=== PATIENT | male | born 1990 | race Caucasian/White ===

== ENCOUNTER 2021-10-25 10:41 | Inpatient (IN) | payer OTHER ==
[~2021-10-25] VITALS: Ht 177.8 cm; Wt 109.1 kg
[2021-10-25] MEDS ORDERED: ONDANSETRON HCL 4 MG/2 ML VIAL IVP ONE (11:00)
[2021-10-25] MEDS ORDERED: SODIUM CHLORIDE 0.9% 1,000 ML IV ONE (11:00)
[2021-10-25] MEDS ORDERED: 0.9% SODIUM CHLORIDE 10 ML SYRINGE IVP PRN (11:45)
[2021-10-25 11:46] LABS: ANION GAP 9 mmol/L (8-16); CALCIUM, TOTAL 9.1 mg/dL (8.8-10.5); CARBON DIOXIDE 26 mmol/L (22-29); CHLORIDE 102 mmol/L (98-107); CREATININE 0.74 mg/dL (0.60-1.30); GLOMERULAR FILTR. RATE CALC > 60 mL/min (>60); GLUCOSE,RANDOM 95 mg/dL (70-110); POTASSIUM 4.3 mmol/L (3.5-5.1); SODIUM SERUM 137 mmol/L (136-145); UREA NITROGEN, BLOOD 9 mg/dL (7-18)
[2021-10-25 11:52] LABS: ALANINE AMINOTRANSFERASE 19 U/L (12-78); ALBUMIN 3.7 g/dL (3.4-5.0); ALKALINE PHOSPHATASE 53 U/L (46-116); ASPARTATE AMINOTRANSFERASE 19 U/L (15-37); BILIRUBIN,TOTAL 0.7 mg/dL (0.1-1.0); TOTAL PROTEIN, SERUM 7.4 g/dL (6.4-8.2)
[2021-10-25 11:59] LABS: COVID AG,FIA SOURCE NASAL SWAB
[2021-10-25 12:55] LABS: BASOPHILS % (AUTO) 0.4 % (0.0-2.0); EOSINOPHILS % (AUTO) 0.5 % (1.0-6.0); HEMATOCRIT 43.7 % (41-53); HEMOGLOBIN 14.3 g/dL (13.5-17.5); LYMPHOCYTES # (AUTO) 1.2 K/uL (1.0-4.8); LYMPHOCYTES % (AUTO) 10.5 % (22.0-44.0); MEAN CORPUSCULAR HEMOGLOBIN 26.1 pg (26.0-34.0); MEAN CORPUSCULAR HGB CONC 32.7 G/dL (31.0-37.0); MEAN CORPUSCULAR VOLUME 80 fL (80-100); MONOCYTES # (AUTO) 0.6 K/uL (0.1-1.0); MONOCYTES % (AUTO) 5.2 % (2.0-9.0); NEUTROPHILS # (AUTO) 9.6 K/uL (1.8-7.7); NEUTROPHILS % (AUTO) 83.4 % (40.0-70.0); PLATELET COUNT (AUTO) 284 K/uL (150-450); RED BLOOD CELL COUNT(AUTO) 5.48 MIL/uL (4.50-5.90); RED CELL DISTRIBUTION WIDTH 13.9 % (11.5-14.5)
[2021-10-25 13:21] LABS: AMPHET/METH SCREEN,URINE POSITIVE (NEGATIVE); BARBITURATE SCREEN, URINE NEGATIVE (NEGATIVE); BENZODIAZEPINES SCREEN,URINE NEGATIVE (NEGATIVE); CANNABINOID SCREEN,URINE POSITIVE (NEGATIVE); COCAINE SCREEN,URINE NEGATIVE (NEGATIVE); METHADONE SCREEN, URINE NEGATIVE (NEGATIVE); OPIATE SCREEN,URINE NEGATIVE (NEGATIVE); PHENCYCLIDINE SCREEN,URINE NEGATIVE (NEGATIVE)
[2021-10-25 16:33] VITALS: BP 114/64
[2021-10-25] MEDS ORDERED: TraZODone HCL 50 MG TABLET PO PRN (19:00)
[2021-10-25] MEDS ORDERED: HydrOXYzine PAMOATE 50 MG CAPSULE PO PRN (19:00)
[2021-10-25] MEDS ORDERED: ACETAMINOPHEN 325 MG TABLET PO PRN (19:00)
[2021-10-25] MEDS ORDERED: IBUPROFEN 600 MG TABLET PO PRN ×2 (19:00)
[2021-10-25] MEDS ORDERED: BACLOFEN 10 MG TABLET PO PRN (19:00)
[2021-10-25] MEDS ORDERED: PROMETHAZINE HCL 25 MG TABLET PO PRN (19:00)
[2021-10-25] MEDS ORDERED: LORazepam 1 MG TABLET PO PRN (19:00)
[2021-10-25] MEDS ORDERED: LORazepam 2 MG TABLET PO PRN (19:00)
[2021-10-25] MEDS ORDERED: CloNIDine HCL 0.1 MG TABLET PO PRN ×2 (19:00)
[2021-10-25] MEDS ORDERED: MAG HYDROX/AL HYDROX/SIMETH ES 30 ML SUSPENSION UDCUP PO PRN ×2 (19:00)
[2021-10-25] MEDS ORDERED: PNEUMOCOCCAL VACCINE POLYVALENT 0.5 ML VIAL [PPSV23] IM. ONE (19:45)
[2021-10-25 20:00] VITALS: BP 120/63
[2021-10-25] MEDS: CloNIDine HCL 0.1 MG TABLET PO SCH (20:12)
[2021-10-25] MEDS: 1: MAGNESIUM SULFATE 2 GM, MVI, ADULT NO.1 WITH VIT K 10 ML, THIAMINE 100 MG, FOLIC ACID IV SCH ×5 (20:13)
[2021-10-25 23:31] VITALS: BP 107/52
[2021-10-26 04:26] VITALS: BP 109/72
[2021-10-26] MEDS: CloNIDine HCL 0.1 MG TABLET PO SCH ×4 (05:33→21:28)
[2021-10-26] MEDS ORDERED: LORazepam 2 MG TABLET PO PRN (07:00)
[2021-10-26] MEDS: LORazepam 2 MG TABLET PO SCH ×4 (08:12→20:37)
[2021-10-26] MEDS: 1: MAGNESIUM SULFATE 2 GM, MVI, ADULT NO.1 WITH VIT K 10 ML, THIAMINE 100 MG, FOLIC ACID IV SCH ×10 (08:13→23:12)
[2021-10-26 08:19] VITALS: BP 132/69
[2021-10-26 11:45] VITALS: BP 140/81
[2021-10-26 16:18] VITALS: BP 136/74
[2021-10-26] MEDS: LOPERAMIDE HCL 2 MG/15 ML SUSPENSION UDCUP PO PRN (16:25)
[2021-10-26 19:40] VITALS: BP 90/56
[2021-10-27 04:15] VITALS: BP 145/79
[2021-10-27] MEDS: CloNIDine HCL 0.1 MG TABLET PO SCH ×4 (05:51→21:21)
[2021-10-27 07:07] VITALS: BP 132/69
[2021-10-27] MEDS: LORazepam 2 MG TABLET PO SCH ×4 (08:28→21:19)
[2021-10-27 13:51] VITALS: BP 119/73
[2021-10-27] MEDS: 1: MAGNESIUM SULFATE 2 GM, MVI, ADULT NO.1 WITH VIT K 10 ML, THIAMINE 100 MG, FOLIC ACID IV SCH ×5 (14:02)
[2021-10-27 15:39] VITALS: BP 136/74
[2021-10-28] MEDS: 1: MAGNESIUM SULFATE 2 GM, MVI, ADULT NO.1 WITH VIT K 10 ML, THIAMINE 100 MG, FOLIC ACID IV SCH ×10 (04:02→15:49)
[2021-10-28] MEDS: CloNIDine HCL 0.1 MG TABLET PO SCH ×4 (06:48→21:40)
[2021-10-28] MEDS ORDERED: LORazepam 1 MG TABLET PO PRN (07:00)
[2021-10-28 07:05] VITALS: BP 140/81
[2021-10-28] MEDS: LORazepam 1 MG TABLET PO SCH ×4 (08:19→20:28)
[2021-10-28 08:38] VITALS: BP 117/57
[2021-10-28 15:50] VITALS: BP 133/80
[2021-10-28 19:32] VITALS: BP 131/72
[2021-10-28 23:00] VITALS: BP 117/65
[2021-10-29] MEDS: 1: MAGNESIUM SULFATE 2 GM, MVI, ADULT NO.1 WITH VIT K 10 ML, THIAMINE 100 MG, FOLIC ACID IV SCH ×10 (04:09→17:42)
[2021-10-29 05:16] VITALS: BP 132/61
[2021-10-29] MEDS: CloNIDine HCL 0.1 MG TABLET PO SCH ×4 (06:02→22:00)
[2021-10-29] MEDS ORDERED: LORazepam 1 MG TABLET PO PRN (07:00)
[2021-10-29 07:28] VITALS: BP 136/82
[2021-10-29] MEDS: HydrOXYzine PAMOATE 50 MG CAPSULE PO PRN ×3 (09:43→23:14)
[2021-10-29] MEDS: DICYCLOMINE HCL 10 MG CAPSULE PO PRN ×2 (09:43→21:28)
[2021-10-29 15:57] VITALS: BP 124/73
[2021-10-29 21:24] VITALS: BP 108/64
[2021-10-29] MEDS: LOPERAMIDE HCL 2 MG/15 ML SUSPENSION UDCUP PO PRN (23:13)
[2021-10-29 23:18] VITALS: BP 121/71
[2021-10-30 05:28] VITALS: BP 138/79
[2021-10-30] MEDS: HydrOXYzine PAMOATE 50 MG CAPSULE PO PRN (05:29)
[2021-10-30] MEDS: CloNIDine HCL 0.1 MG TABLET PO SCH (06:00)
[2021-10-30] MEDS: 1: MAGNESIUM SULFATE 2 GM, MVI, ADULT NO.1 WITH VIT K 10 ML, THIAMINE 100 MG, FOLIC ACID IV SCH ×5 (07:02)
[2021-10-30 07:37] VITALS: BP 136/70
== END 2021-10-30 12:10 | DRG 897 ==
LOC: EMS 10:45 → 6S 13:16
PROVIDERS: ADMIT Hospitalist; ATTEND Hospitalist
DX: F10.239 Alcohol dependence with withdrawal, unspecified (principal); J45.909 Unspecified asthma, uncomplicated; F11.23 Opioid dependence with withdrawal; Z20.822 Contact with and (suspected) exposure to COVID-19; Z87.891 Personal history of nicotine dependence; Z79.899 Other long term (current) drug therapy
CPT/HCPCS: 80053; 85025; 99285; G0480; J2405; J3411; J3475; J3490; J7030